=== PATIENT | female | born 1965 | race Caucasian/White ===

== ENCOUNTER 2017-09-27 15:17 | Emergency (ER) | payer OTHER ==
[2017-09-27 15:34] VITALS: RESP 20; TEMP 98.8
--- NOTE | 2017-09-27 15:35 | EDPHY ---
H & P Time Seen by Provider: 09/27/17 15:34 HPI/ROS: Chief complaint. Knee injury HPI. Patient is a 52-year-old female with chronic right knee pain and an acute injury today. March 2017 she tore the fascia in her knee diagnosed on MRI. The orthopedist recommended conservative treatment. 1 month ago she hurt her knee lifting weights. Patient works as a at [employer]er. The knee has been hurting more the last few days. [place] and was walking across the room and felt a pop in her knee. Increased pain in the right knee to the lateral aspect of her knee. Previously her torn fascia was in the medial posterior aspect of the knee. She has not had knee surgery. It is painful to walk on. ROS Constitutional. no fever/chills, no weakness Eyes. no problems with vision ENT. no sore throat, no nasal drainage Cardiovascular. no chest pain Respiratory. no shortness of breath, no cough Abdominal. no abdominal pain, no nausea/vomiting, no diarrhea . no problems urinating MS. Right knee pain Skin. no rash Lymph. no swollen glands Neuro. no headache, no dizziness, no difficulty walking or with speech Past Medical/Surgical History: Previous right knee injury Social History: , nonsmoker, no alcohol Smoking Status: Never smoked Physical Exam: General Appearance: Alert well-developed female mild distress vital signs are stable Eyes: Pupils equal and round no pallor or injection. ENT, Mouth: Mucous membranes are moist. Respiratory: There are no retractions, lungs are clear to auscultation. Cardiovascular: Regular rate and rhythm. Gastrointestinal: Abdomen is soft and nontender, no masses, bowel sounds normal. Neurological: Awake and alert, sensory and motor exams grossly normal. Skin: Warm and dry, no rashes. Musculoskeletal: Neck is supple nontender. Extremities symmetrical, full range of motion. Right knee without obvious swelling or deformity. Patella is nontender. There is no tenderness to the medial or lateral joint lines. There does not appear to be instability to stress testing. She shows me tenderness in the mid lateral aspect of the right knee. Distal motor vascular sensitivity is intact Psychiatric: Patient is oriented X 3, there is no agitation. Constitutional: Initial Vital Signs Temperature (C) 37.1 C 09/27/17 15:27 Heart Rate 79 09/27/17 15:27 Respiratory Rate 20 09/27/17 15:27 Blood Pressure 131/38 H 09/27/17 15:27 O2 Sat (%) 99 09/27/17 15:27 O2 Delivery Mode Room Air Allergies/Adverse Reactions: No Known Allergies Allergy (Unverified 09/27/17 15:34) Home Medications: Medication Instructions Recorded Diclofenac Sodium 09/27/17 Hydrocodone/APAP 5/325 [Catlin 1 each PO Q4-6PRN PRN #14 tab 09/27/17 5/325 (*)] Metformin HCl 09/27/17 Medical Decision Making - Diagnostics Imaging Results: X-ray right knee interpreted by me as normal Procedures: Ibuprofen 600 mg Knee immobilizer is placed. Post knee immobilizer placement evaluated by me shows good anatomic position and distal motor vascular sensitivity to be intact ED Course/Re-evaluation: Re-evaluation 4:35 p.m.. The patient, her , and I discussed imaging study results. We discussed treatment plan including criteria for return and recommendation for follow-up and further evaluation. They expressed understanding and agreement Patient would like a referral to Dr. Marin Differential Diagnosis: I considered fracture, dislocation, ligamental and meniscus injuries. - Data Points Medications Given: Discontinued Medications Ibuprofen (Motrin) 600 mg PO EDNOW ONE Stop: 09/27/17 15:48 Last Admin: 09/27/17 15:54 Dose: 600 mg Departure - Departure Disposition: Home, Routine, Self-Care Clinical Impression: Strain of right knee Qualifiers: Encounter type: initial encounter Qualified Code(s): S86.911A - Strain of unspecified muscle(s) and tendon(s) at lower leg level, right leg, initial encounter Condition: Good Instructions: Knee Pain (ED), Knee Immobilizer (ED) Additional Instructions: Ice and elevation as much as possible next 24-48 hours. Wear the knee immobilizer when up and walking until see orthopedist. Call Friday morning for follow-up orthopedic appointment either with Dr. Marin or Dr. Garland. Hydrocodone as needed for discomfort. Return for worsening symptoms Referrals: NONE *PRIMARY CARE P,. [Primary Care Provider] - As per Instructions Guy Marin MD [Medical Doctor] - 5-7 days, call for appt. Prescriptions: Hydrocodone/APAP 5/325 [Catlin 5/325 (*)] 1 each PO Q4-6PRN PRN #14 tab PRN Reason: Pain, Moderate
[2017-09-27] MEDS ORDERED: IBUPROFEN 600 MG TAB PO ONE (15:47)
[2017-09-27 17:10] VITALS: BP 113/66; PULSE 80; O2SAT 96
== END 2017-09-27 17:09 | disposition home or self-care (01) ==
LOC: CED 15:17
DX: S86.911A Strain of unspecified muscle(s) and tendon(s) at lower leg level, right leg, initial encounter (principal); X50.0XXA Overexertion from strenuous movement or load, initial encounter; Y92.69 Other specified industrial and construction area as the place of occurrence of the external cause; Y99.0 Civilian activity done for income or pay; Y93.01 Activity, walking, marching and hiking
CPT/HCPCS: 73564-PO; L1830